=== PATIENT | female | born 1990 | race African-American/Black ===

== ENCOUNTER 2016-07-04 19:31 | Emergency (ER) | payer SELFPAY ==
[~2016-07-04] VITALS: Ht 167.6 cm; Wt 80.0 kg
== END 2016-07-05 03:35 | disposition home or self-care (01) ==
LOC: ER 19:31
DX: M67.432 Ganglion, left wrist (principal); J45.909 Unspecified asthma, uncomplicated
CPT/HCPCS: 99281